=== PATIENT | female | born 1985 | race African-American/Black ===

== ENCOUNTER 2018-05-15 12:57 | Emergency (ER) | payer OTHER ==
[2018-05-15 13:29] VITALS: BP 114/75; PULSE 69; TEMP 98.2; BMI 45.1
--- NOTE | 2018-05-15 14:59 | PDOC ---
History of Present Illness - General Chief Complaint: Cold Symptoms Stated Complaint: COLD SYMPTOMS / BODY ACHE Time Seen by Provider: 05/15/18 14:11 - History of Present Illness Initial Comments: 05/15/18 14:57 32-year-old female with fever and flulike symptoms 2 days Past History - Past Medical History Allergies/Adverse Reactions: Allergies Allergy/AdvReac Type Severity Reaction Status Date / Time Penicillins Allergy Intermediate Verified 05/15/18 13:25 peach AdvReac Intermediate Hives Verified 05/15/18 13:25 Home Medications: Ambulatory Orders Oseltamivir Phosphate [Tamiflu] 75 mg PO BID #10 capsule 05/15/18 Asthma: No Cancer: No Cardiac Disorders: No COPD: No Diabetes: No HTN: No Seizures: No Thyroid Disease: No - Surgical History Cholecystectomy: Yes - Immunization History Immunization Up to Date: Yes - Suicide/Smoking/Psychosocial Hx Smoking History: Never smoked Have you smoked in the past 12 months: No Hx Alcohol Use: No Drug/Substance Use Hx: No Substance Use Type: None Hx Substance Use Treatment: No Review of Systems - Review of Systems Constitutional: Yes: Chills, Diaphoresis, Fever, Malaise, Night Sweats HEENTM: Yes: Nose Congestion Respiratory: Yes: Cough *Physical Exam - Vital Signs Last Vital Signs Temp Pulse Resp BP Pulse Ox 98.2 F 69 18 114/75 97 05/15/18 13:26 05/15/18 13:26 05/15/18 13:26 05/15/18 13:26 05/15/18 13:26 - Physical Exam Comments: 05/15/18 14:57 HEAD: NC/AT EYES: Conjuntiva clear Ears: Canals and TM's normal NOSE: No d/c THROAT: Moist mucous membrances, oral pharanx clear, uvula midline NECK: Supple without adenopathy CARDIAC: S1 S2 LUNGS: CTA Full and Equal breath sounds ABDOMEN: Soft NT ND MS: Full ROM in all joints without edema NEUROLOGIC: No gross sensory or motor deficits, NVID SKIN: Normal color and temperature no lesions or rashes Moderate Sedation - Procedure Monitoring Vital Signs: Procedure Monitoring Vital Signs Temperature 98.2 F 05/15/18 13:26 Pulse Rate 69 05/15/18 13:26 Respiratory Rate 18 05/15/18 13:26 Blood Pressure 114/75 05/15/18 13:26 O2 Sat by Pulse Oximetry (%) 97 05/15/18 13:26 Medical Decision Making - Medical Decision Making 05/15/18 14:58 we'll treat for flu *DC/Admit/Observation/Transfer Diagnosis at time of Disposition: Influenza - Discharge Dispostion Disposition: HOME Condition at time of disposition: Stable Decision to Admit order: No - Prescriptions Prescriptions: Oseltamivir Phosphate [Tamiflu] 75 mg PO BID #10 capsule - Referrals Referrals: Addie Howard MD [Primary Care Provider] - - Patient Instructions Printed Discharge Instructions: Influenza Additional Instructions: Tylenol and Motrin as directed for pain. Return to the emergency room for worsening symptoms. Follow-up with your primary care physician in one to 2 days for further evaluation and treatment options. - Post Discharge Activity
== END 2018-05-15 15:04 | disposition home or self-care (01) ==
LOC: JERFT 12:57
DX: J11.1 Influenza due to unidentified influenza virus with other respiratory manifestations (principal)
CPT/HCPCS: 87804; 99281-25